=== PATIENT | female | born 1995 | race American Indian/Alaskan Native ===

== ENCOUNTER 2018-01-29 18:16 | Emergency (ER) | payer BC ==
[2018-01-29] MEDS ORDERED: TRIMOX PO ONE (21:21)
[2018-01-29] MEDS ORDERED: ULTRAM PO ONE (21:21)
--- NOTE | 2018-01-29 22:13 | Emergency Department Report ---
ED ENT HPI - General Chief complaint: Dental/Oral Stated complaint: TOOTH PAIN ABSSES Time Seen by Provider: 01/29/18 21:19 Source: patient Mode of arrival: Ambulatory Limitations: No Limitations - History of Present Illness Initial comments: They presents for abdominal pain to numbers 1,2,3 and 4 gone irritation is no facial swelling no throat pain no ear pain braces are all intact patient is tolerating by mouth intake there is no fever chills pain is 5/10 MD complaint: tooth pain Onset/Timin -: week(s) Location: tooth # (123&4) Severity: moderate Severity scale (0 -10): 5 Quality: aching Consistency: constant Improves with: other (has not attemtp otc pain medication) Worsens with: other (hot and cold stimuli) - Related Data Previous Rx's Medication Instructions Recorded Last Taken Type Acetaminophen/Codeine [Tylenol 1 tab PO Q8H PRN #9 tab 01/29/18 Unknown Rx /Codeine # 3 tab] Amoxicillin 500 mg PO TID #30 capsule 01/29/18 Unknown Rx Chlorhexidine Mouthwash [Peridex] 15 ml MM BID #1 bottle 01/29/18 Unknown Rx Allergies Allergy/AdvReac Type Severity Reaction Status Date / Time No Known Allergies Allergy Unverified 01/29/18 18:28 ED Dental HPI - General Chief complaint: Dental/Oral Stated complaint: TOOTH PAIN ABSSES Time Seen by Provider: 01/29/18 21:19 Source: patient Mode of arrival: Ambulatory Limitations: No Limitations - Related Data Previous Rx's Medication Instructions Recorded Last Taken Type Acetaminophen/Codeine [Tylenol 1 tab PO Q8H PRN #9 tab 01/29/18 Unknown Rx /Codeine # 3 tab] Amoxicillin 500 mg PO TID #30 capsule 01/29/18 Unknown Rx Chlorhexidine Mouthwash [Peridex] 15 ml MM BID #1 bottle 01/29/18 Unknown Rx Allergies Allergy/AdvReac Type Severity Reaction Status Date / Time No Known Allergies Allergy Unverified 01/29/18 18:28 ED Review of Systems ROS: Stated complaint: TOOTH PAIN ABSSES Other details as noted in HPI Constitutional: denies: chills, fever Eyes: denies: eye pain, eye discharge, vision change ENT: dental pain. denies: ear pain, throat pain Respiratory: denies: cough, shortness of breath, wheezing Cardiovascular: denies: chest pain, palpitations Endocrine: no symptoms reported Gastrointestinal: denies: abdominal pain, nausea, diarrhea Genitourinary: denies: urgency, dysuria, discharge Musculoskeletal: denies: back pain, joint swelling, arthralgia Skin: denies: rash, lesions Neurological: denies: headache, weakness, paresthesias Psychiatric: denies: anxiety, depression Hematological/Lymphatic: denies: easy bleeding, easy bruising ED Past Medical Hx - Past Medical History Previous Medical History?: No - Surgical History Past Surgical History?: Yes Additional Surgical History: ECTOPIC PREG - Social History Smoking Status: Never Smoker Substance Use Type: None - Medications Home Medications: Home Medications Medication Instructions Recorded Confirmed Last Taken Type Acetaminophen/Codeine [Tylenol 1 tab PO Q8H PRN #9 tab 01/29/18 Unknown Rx /Codeine # 3 tab] Amoxicillin 500 mg PO TID #30 capsule 01/29/18 Unknown Rx Chlorhexidine Mouthwash [Peridex] 15 ml MM BID #1 bottle 01/29/18 Unknown Rx ED Physical Exam - General Limitations: No Limitations General appearance: alert, in no apparent distress - Head Head exam: Present: atraumatic, normocephalic - Eye Eye exam: Present: normal appearance - ENT ENT exam: Present: mucous membranes moist, TM's normal bilaterally - Expanded ENT Exam Expanded Teeth exam: Present: dental caries (123&4), fractured tooth # (1,2), dental tenderness # (123&4), other (there is mild gum erythema no swelling no facial swelling no trismus uvula is midline ) - Neck Neck exam: Present: normal inspection - Respiratory Respiratory exam: Present: normal lung sounds bilaterally. Absent: respiratory distress, wheezes, stridor - GI/Abdominal GI/Abdominal exam: Present: soft, normal bowel sounds - Rectal Rectal exam: Present: deferred - Extremities Exam Extremities exam: Present: normal inspection - Back Exam Back exam: Present: normal inspection - Neurological Exam Neurological exam: Present: alert, oriented X3 - Psychiatric Psychiatric exam: Present: normal affect, normal mood - Skin Skin exam: Present: warm, dry, intact, normal color. Absent: rash ED Course Vital Signs 01/29/18 18:29 Temperature 98.4 F Pulse Rate 82 Respiratory 18 Rate Blood Pressure 117/78 O2 Sat by Pulse 99 Oximetry ED Medical Decision Making - Medical Decision Making Patient with multiple infected dental caries patient has braces on his follow- up in orthodontics states she is working on dental cares simultaneously there is no focal abscess mild gum erythema no swelling no trismus no uvular swelling no ear pain plan Peridex amoxicillin ibuprofen when necessary pain and follow- up with dentist in 2-3 days as scheduled Critical care attestation.: If time is entered above; I have spent that time in minutes in the direct care of this critically ill patient, excluding procedure time. ED Disposition Clinical Impression: Infected dental carries Disposition: DC- TO HOME OR SELFCARE Is pt being admited?: No Does the pt Need Aspirin: No Condition: Good Instructions: Dental Caries (ED) Prescriptions: Acetaminophen/Codeine [Tylenol /Codeine # 3 tab] 1 tab PO Q8H PRN #9 tab PRN Reason: pain Amoxicillin 500 mg PO TID #30 capsule Chlorhexidine Mouthwash [Peridex] 15 ml MM BID #1 bottle Referrals: [facility] [Outside] - 3-5 Days Forms: Work/School Release Form(ED) Time of Disposition: 22:16
[2018-01-29 22:23] VITALS: BP 122/65
== END 2018-01-29 22:21 | disposition home or self-care (01) ==
LOC: ED 18:16
DX: K04.7 Periapical abscess without sinus (principal)
CPT/HCPCS: 99282